=== PATIENT | female | born 1975 | race African-American/Black ===

== ENCOUNTER 2019-09-11 10:33 | Emergency (ER) | payer BC ==
[~2019-09-11] VITALS: Ht 167.6 cm; Wt 73.0 kg
[2019-09-11 10:54] VITALS: BP 163/102
[2019-09-11] MEDS ORDERED: CLONIDINE 0.2MG TABLET PO ONE (11:45)
== END 2019-09-11 13:30 | disposition home or self-care (01) ==
LOC: ER 10:33
DX: R42 Dizziness and giddiness (principal); I10 Essential (primary) hypertension; J45.909 Unspecified asthma, uncomplicated; Z90.49 Acquired absence of other specified parts of digestive tract
CPT/HCPCS: 93005; 99283

== ENCOUNTER 2019-11-05 15:56 | Emergency (ER) | payer BC ==
[~2019-11-05] VITALS: Ht 165.1 cm; Wt 73.0 kg
[2019-11-05 15:58] VITALS: BP 145/85
[2019-11-05] MEDS ORDERED: MECLIZINE 25MG TABLET PO ONE (16:15)
[2019-11-05 16:53] LABS: BASOPHILS % 0.9 % (0.0-2.0); EOSINOPHILS % 1.2 % (0.0-5.0); HEMATOCRIT. 32.9 % (36.0-48.0); HEMOGLOBIN. 10.6 g/dL (12.0-16.0); LYMPHOCYTES % 39.7 % (20.0-50.0); MEAN CORPUSCULAR HEMOGLOBIN 27.6 pg (28.0-32.0); MEAN CORPUSCULAR VOLUME 85.7 fL (81.0-99.0); MEAN PLATELET VOLUME 8.6 fl (7.4-10.4); MONOCYTES % 8.8 % (2.0-8.0); NEUTROPHILS % 49.4 % (40.0-76.0); PLATELET 325 x1000/uL (130-400); RED BLOOD CELL COUNT 3.83 mill/uL (4.2-5.4); RED CELL DISTRIBUTION WIDTH 17.5 % (11.6-14.6)
[2019-11-05 16:57] LABS: CHLORIDE 108 mEq/L (98-107)
== END 2019-11-05 18:06 | disposition home or self-care (01) ==
LOC: ER 15:56
DX: R42 Dizziness and giddiness (principal); J45.909 Unspecified asthma, uncomplicated; I10 Essential (primary) hypertension; Z90.49 Acquired absence of other specified parts of digestive tract
CPT/HCPCS: 36415; 71045; 80053; 85025; 93005; 99285; J8597

== ENCOUNTER → 2019-11-13 | Outpatient (CLI) | payer BC ==
[2019-11-13 09:11] LABS: T4 FREE 0.81 ng/dL (0.76-1.46)
== END | disposition home or self-care (01) ==
LOC: LAB 08:29
PROVIDERS: ATTEND Internal Medicine
DX: Z13.220 Encounter for screening for lipoid disorders (principal); R42 Dizziness and giddiness; Z13.1 Encounter for screening for diabetes mellitus
CPT/HCPCS: 36415; 80061; 83036; 84439; 84443